=== PATIENT | female | born 1975 | race Two or more races ===

== ENCOUNTER 2018-08-03 16:19 | Emergency (ER) | payer OTHER ==
[~2018-08-03] VITALS: Ht 165.1 cm; Wt 54.5 kg
[2018-08-03 17:19] VITALS: BP 152/120
== END 2018-08-03 17:45 | disposition home or self-care (01) ==
LOC: EMS 16:20
DX: B37.3 Candidiasis of vulva and vagina (principal); R30.0 Dysuria
CPT/HCPCS: 99282

== ENCOUNTER 2022-07-27 15:01 | Emergency (ER) | payer OTHER ==
[~2022-07-27] VITALS: Ht 160 cm; Wt 79.5 kg
[2022-07-27] MEDS ORDERED: ACETAMINOPHEN 500 MG TABLET PO ONE (16:00)
[2022-07-27 17:00] VITALS: BP 118/73
== END 2022-07-27 17:18 | disposition home or self-care (01) ==
LOC: EMS 15:08
DX: S39.012A Strain of muscle, fascia and tendon of lower back, initial encounter (principal); S16.1XXA Strain of muscle, fascia and tendon at neck level, initial encounter; E11.9 Type 2 diabetes mellitus without complications; V89.2XXA Person injured in unspecified motor-vehicle accident, traffic, initial encounter; Y93.89 Activity, other specified; Y92.89 Other specified places as the place of occurrence of the external cause; Y99.8 Other external cause status
CPT/HCPCS: 72040; 72100; 99284; Z7502; Z7610